=== PATIENT | male | born 1965 | race Caucasian/White ===

== ENCOUNTER 2016-11-05 21:27 | Day surgery (SDCO) | payer MEDICARE, OTHER ==
[~2016-11-05 21:27] MED LIST: DETROL2 MG PO; FLOMAX0.4 MG PO; LEVAQUIN500 MG PO; PAXIL30 MG PO; PLAVIX75 MG PO; PROTONIX 40MG T40 MG PO; SEROQUEL XR150 MG PO; SEROQUEL300 MG PO; ZOCOR40 M1 PO
[2016-11-05 22:43] LABS: BASOPHIL 0.3 % (0-2); BILIRUBIN NEGATIVE (NEGATIVE); BLOOD NEGATIVE Ery/uL (NEGATIVE); CLARITY CLEAR (CLEAR); COLOR YELLOW (YELLOW); EOSINOPHIL 0.3 % (0-5); GLUCOSE (U) NORMAL (NORMAL); HCT 42.2 % (42.0-52.0); HGB 15.1 g/dl (13.2-18.0); KETONE (U) NEGATIVE (NEGATIVE); LEUKOCYTES NEGATIVE Leu/uL (NEGATIVE); MCH 32.1 pg (25.0-31.0); MCHC 35.8 g/dL (32.0-36.0); MCV 89.6 fL (78.0-100.0); MONOCYTE 7.9 % (0-12); NEUTROPHIL 85.5 % (41-80); NITRITE NEGATIVE (NEGATIVE); PLT 216 K/uL (150-400); PROTEIN NEGATIVE (NEGATIVE); RBC 4.71 M/uL (4.70-6.00); RDW 13.6 % (11.5-14.0); SPECIFIC GRAVITY <=1.005 (1.001-1.030); UROBILINOGEN 0.2 mg/dL (0.2-1.0); WBC 9.6 K/uL (4.0-10.5); pH 8.5 (5.0-9.0)
[2016-11-05 22:55] LABS: LACTIC ACID 1.3 mmol/L (0.5-2.2)
[2016-11-05 22:58] LABS: ALBUMIN 3.5 g/dL (3.5-5.0); BILIRUBIN - TOTAL 0.4 mg/dL (0.1-1.0); CREATININE 1.2 mg/dL (0.7-1.2); GLOBULIN (CALCULATION) 2.8 g/dL (2.2-4.2); POTASSIUM 3.6 mmol/L (3.5-5.1); TOTAL PROTEIN 6.3 g/dL (6.4-8.3)
[2016-11-07 05:55] LABS: HCT 39.9 % (42.0-52.0); HGB 13.7 g/dl (13.2-18.0); MCH 31.9 pg (25.0-31.0); MCHC 34.3 g/dL (32.0-36.0); MCV 92.8 fL (78.0-100.0); MPV 10.1 fL (6.0-9.5); RBC 4.3 M/uL (4.70-6.00); RDW 14.1 % (11.5-14.0); WBC 5.4 K/uL (4.0-10.5)
[2016-11-07] MEDS ORDERED: SEROQUEL 100MG100 MG PO (14:37)
[2016-11-07] MEDS ORDERED: DETROL LA4 MG PO (14:38)
== END 2016-11-07 16:08 | disposition home or self-care (01) ==
LOC: FER 21:27 → FMS 11-06 03:50
PROVIDERS: Emergency Medicine Emergency Medical Services; ADMIT Internal Medicine
DX: R10.9 Unspecified abdominal pain (principal); Q90.9 Down syndrome, unspecified; E78.5 Hyperlipidemia, unspecified; F41.9 Anxiety disorder, unspecified; K21.9 Gastro-esophageal reflux disease without esophagitis; E78.00 Pure hypercholesterolemia, unspecified; Z90.49 Acquired absence of other specified parts of digestive tract; Z82.49 Family history of ischemic heart disease and other diseases of the circulatory system; Z96.659 Presence of unspecified artificial knee joint; Z96.649 Presence of unspecified artificial hip joint; Z79.02 Long term (current) use of antithrombotics/antiplatelets; Z79.899 Other long term (current) drug therapy; Z98.890 Other specified postprocedural states
CPT/HCPCS: 36415; 80048; 80053; 81003; 82150; 83605; 83690; 85025; 87040; 87088; 93005; 94010; 96372; C9113; G0378; J0500; J1170; J2270; J2405; Q9967

== ENCOUNTER 2016-12-07 16:21 | Emergency (ER) | payer MEDICARE, OTHER ==
[~2016-12-07 16:21] MED LIST changes: +DETROL LA4 MG PO; +SEROQUEL 100MG100 MG PO
[2016-12-07 17:17] LABS: BASOPHIL 0.5 % (0-2); EOSINOPHIL 0.8 % (0-5); HCT 46.2 % (42.0-52.0); HGB 16.2 g/dl (13.2-18.0); LYMPHOCYTE 6.1 % (15-48); MCHC 35.1 g/dL (32.0-36.0); MCV 91.1 fL (78.0-100.0); MONOCYTE 10.9 % (0-12); MPV 10.4 fL (6.0-9.5); NEUTROPHIL 81.7 % (41-80); PLT 217 K/uL (150-400); RBC 5.07 M/uL (4.70-6.00); RDW 14.3 % (11.5-14.0); WBC 10.8 K/uL (4.0-10.5)
[2016-12-07 17:32] LABS: ALBUMIN 4.3 g/dL (3.5-5.0); BILIRUBIN - TOTAL 0.6 mg/dL (0.1-1.0); CREATININE 1.1 mg/dL (0.7-1.2); GLOBULIN (CALCULATION) 3.5 g/dL (2.2-4.2); POTASSIUM 3.8 mmol/L (3.5-5.1); TOTAL PROTEIN 7.8 g/dL (6.4-8.3)
[2016-12-07 18:39] LABS: BILIRUBIN NEGATIVE (NEGATIVE); BLOOD NEGATIVE Ery/uL (NEGATIVE); CLARITY CLEAR (CLEAR); COLOR YELLOW (YELLOW); GLUCOSE (U) NORMAL (NORMAL); KETONE (U) 1+ (SMALL) mg/dL (NEGATIVE); LEUKOCYTES NEGATIVE Leu/uL (NEGATIVE); NITRITE NEGATIVE (NEGATIVE); PROTEIN NEGATIVE (NEGATIVE); UROBILINOGEN 0.2 mg/dL (0.2-1.0); pH 7.5 (5.0-9.0)
== END 2016-12-07 19:48 | disposition home or self-care (01) ==
LOC: FER 16:21
PROVIDERS: Nurse Practitioner
DX: R19.7 Diarrhea, unspecified (principal); R11.0 Nausea; N18.9 Chronic kidney disease, unspecified; Q90.9 Down syndrome, unspecified; F79 Unspecified intellectual disabilities; Z87.11 Personal history of peptic ulcer disease; Z79.899 Other long term (current) drug therapy; Z87.19 Personal history of other diseases of the digestive system; Z86.73 Personal history of transient ischemic attack (TIA), and cerebral infarction without residual deficits; Z79.01 Long term (current) use of anticoagulants; Z98.890 Other specified postprocedural states
CPT/HCPCS: 36415; 80053; 81003; 85025; Q9967

== ENCOUNTER 2020-07-04 15:02 | Emergency (ER) | payer MEDICARE, OTHER ==
[~2020-07-04 15:02] MED LIST changes: +BENTYL10 MG PO; +CEFDINIR300 MG PO; +DEPAKOTE250 MG PO; +DITROPAN5 MG PO; +FIBERCON625 MG PO; +NORCO 5-325 TA1 EACH PO; +VIBRAMYCIN100 MG PO; +ZOFRAN ODT4 MG SL; +ZOFRAN4 MG PO; +ZPAK PO
[2020-07-04 15:47] LABS: BASOPHIL 0.5 % (0-2); EOSINOPHIL 0.2 % (0-5); HGB 15.9 g/dl (13.2-18.0); LYMPHOCYTE 6.9 % (15-48); MCH 32.3 pg (25.0-31.0); MCHC 33.8 g/dL (32.0-36.0); MCV 95.3 fL (78.0-100.0); MONOCYTE 1.2 % (0-12); MPV 9.8 fL (6.0-9.5); NRBC 0; PLT 221 K/uL (150-400); RBC 4.93 M/uL (4.70-6.00); RDW 13.2 % (11.5-14.0); WBC 4.2 K/uL (4.0-10.5)
[2020-07-04 15:50] LABS: INR 1.09 (0.9-1.2); PROTHROMBIN TIME 13.4 SECONDS (11.4-13.6); PTT 23.8 SECONDS (22.2-34.7)
[2020-07-04 15:59] LABS: ALBUMIN 3.4 g/dL (3.4-5.0); BILIRUBIN - TOTAL 0.5 mg/dL (0.2-1.0); BUN/CREAT RATIO (CALC) 14.8 RATIO; CREATININE 1.22 mg/dL (0.67-1.17); GLOBULIN (CALCULATION) 4.3 g/dL; POTASSIUM 4.1 mmol/L (3.5-5.1); TOTAL PROTEIN 7.7 g/dL (6.4-8.2)
[2020-07-04 18:05] LABS: BILIRUBIN NEGATIVE (NEGATIVE); BLOOD NEGATIVE Ery/uL (NEGATIVE); CLARITY CLEAR (CLEAR); COLOR YELLOW (YELLOW); GLUCOSE (U) NORMAL (NORMAL); LEUKOCYTES NEGATIVE Leu/uL (NEGATIVE); NITRITE NEGATIVE (NEGATIVE); PROTEIN NEGATIVE (NEGATIVE); UROBILINOGEN 0.2 mg/dL (0.2-1.0)
[2020-07-04 18:42] LABS: CORONAVIRUS 2019 SARS-COV-2 NEGATIVE (NEGATIVE); INFLUENZA A NAA NEGATIVE (NEGATIVE)
== END 2020-07-04 22:11 | disposition other institution (70) ==
LOC: FER 15:02
PROVIDERS: Emergency Medicine
DX: I21.4 Non-ST elevation (NSTEMI) myocardial infarction (principal); J18.9 Pneumonia, unspecified organism; R79.1 Abnormal coagulation profile; R79.89 Other specified abnormal findings of blood chemistry; I10 Essential (primary) hypertension; Z86.73 Personal history of transient ischemic attack (TIA), and cerebral infarction without residual deficits; Z20.822 Contact with and (suspected) exposure to COVID-19; Z79.02 Long term (current) use of antithrombotics/antiplatelets; Z79.899 Other long term (current) drug therapy
CPT/HCPCS: 36415; 71045; 80053; 81003; 83690; 84484; 85025; 85379; 85610; 85730; 93005; J1644; J2270; J2405; J2543; Q9967; U0002

== ENCOUNTER 2020-11-06 13:20 | Emergency (ER) | payer MEDICARE, OTHER ==
[2020-11-06 15:24] LABS: BILIRUBIN NEGATIVE (NEGATIVE); BLOOD NEGATIVE Ery/uL (NEGATIVE); CLARITY CLEAR (CLEAR); COLOR YELLOW (YELLOW); GLUCOSE (U) NORMAL (NORMAL); LEUKOCYTES NEGATIVE Leu/uL (NEGATIVE); NITRITE NEGATIVE (NEGATIVE); PROTEIN NEGATIVE (NEGATIVE); SPECIFIC GRAVITY 1.015 (1.001-1.030); UROBILINOGEN 0.2 mg/dL (0.2-1.0); pH 6.5 (5.0-9.0)
[2020-11-06 15:49] LABS: BASOPHIL 0.7 % (0-2); EOSINOPHIL 0.2 % (0-5); HCT 44.1 % (42.0-52.0); HGB 15.2 g/dl (13.2-18.0); LYMPHOCYTE 5.6 % (15-48); MCH 33.2 pg (25.0-31.0); MCHC 34.5 g/dL (32.0-36.0); MCV 96.3 fL (78.0-100.0); MONOCYTE 8.8 % (0-12); MPV 9.7 fL (6.0-9.5); NEUTROPHIL 84.5 % (41-80); NRBC 0; PLT 153 K/uL (150-400); RBC 4.58 M/uL (4.70-6.00); RDW 13.2 % (11.5-14.0); WBC 5.7 K/uL (4.0-10.5)
[2020-11-06 16:01] LABS: BILIRUBIN - TOTAL 0.4 mg/dL (0.2-1.0); BUN/CREAT RATIO (CALC) 13.4 RATIO; CREATININE 1.12 mg/dL (0.67-1.17); GLOBULIN (CALCULATION) 3.8 g/dL; POTASSIUM 4.3 mmol/L (3.5-5.1); TOTAL PROTEIN 6.8 g/dL (6.4-8.2)
[2020-11-06] MEDS ORDERED: AUGMENTIN 875-1 EACH PO (17:28)
== END 2020-11-06 18:02 | disposition home or self-care (01) ==
LOC: FER 13:20
PROVIDERS: Nurse Practitioner Family
DX: J18.9 Pneumonia, unspecified organism (principal); R10.9 Unspecified abdominal pain; I10 Essential (primary) hypertension; Q90.9 Down syndrome, unspecified; Z98.890 Other specified postprocedural states; Z90.49 Acquired absence of other specified parts of digestive tract
CPT/HCPCS: 36415; 74022; 80048; 80053; 81003; 85025; J0696

== ENCOUNTER 2021-10-14 17:06 | Emergency (ER) | payer MEDICARE, OTHER ==
[~2021-10-14 17:06] MED LIST changes: +AUGMENTIN 875-1 EACH PO
[2021-10-14] MEDS ORDERED: OFLOXACIN5 M1 AD (17:57)
== END 2021-10-14 19:05 | disposition home or self-care (01) ==
LOC: FER 17:06
DX: H66.91 Otitis media, unspecified, right ear (principal); H72.91 Unspecified perforation of tympanic membrane, right ear
CPT/HCPCS: 99282